=== PATIENT | female | born 1950 | race Caucasian/White ===

== ENCOUNTER 2017-07-28 20:58 | Emergency (ER) | payer SELFPAY ==
[2017-07-28] MEDS ORDERED: Ketorolac Tromethamine 60 MG/2 ML VIAL ONE (21:17)
[2017-07-28] MEDS ORDERED: Haloperidol Lactate 5 MG/ML VIAL ONE (21:42)
--- NOTE | 2017-07-28 23:02 | RAD ---
SACRUM AND COCCYX 07/28/17 The sacrum appears intact, though subtle injuries would be missed. The SI joints are symmetrical. Th e coccyx seems normally placed. The lateral views suggest spondylolisthesis of L5 on S1. IMPRESSION: No acute sacral or coccygeal findings. Sensitivity of the study would be low. If pain persisted, a C T could be helpful. POS: HOME
== END 2017-07-28 21:55 | disposition home or self-care (01) ==
LOC: BURERS 20:58
DX: M25.522 Pain in left elbow (principal); M54.5 Low back pain; J45.909 Unspecified asthma, uncomplicated; F41.9 Anxiety disorder, unspecified; F31.9 Bipolar disorder, unspecified; Z79.899 Other long term (current) drug therapy; W01.0XXA Fall on same level from slipping, tripping and stumbling without subsequent striking against object, initial encounter
CPT/HCPCS: 72220; 96372; J1630; J1885

== ENCOUNTER 2022-02-02 11:53 | Emergency (ER) | payer MEDICARE, OTHER ==
[2022-02-02] MEDS ORDERED: HYDROcodone/Acetaminophen 5/325 mg Tablet ONE (12:15)
[2022-02-02 12:33] LABS: #Basophils 0.2 thou/uL (0.0-0.2); #Eosinphils 0.6 thou/uL (0.0-0.7); #Lymphocytes 2.5 thou/uL (1.20-3.40); #Monocytes 0.8 thou/uL (0.11-0.59); #Neutrophils 6.1 thou/uL (1.40-6.50); %Basophils 1.6 % (0.0-1.0); %Eosinophils 6.2 % (0.0-10.0); %Lymphocytes 24.3 % (21.0-51.0); %Monocytes 7.7 % (0.0-10.0); %Neutrophils 60.2 % (42.0-75.0); Hemoglobin 13.4 g/dL (12.0-16.0); Mean Corpuscular HGB CONC 32.4 g/dL (32.0-36.0); Mean Corpuscular Hemoglobin 33.8 pg (27.0-31.0); Mean Platelet Volume 5.6 fL (7.4-10.4); Platelet Count 365 thou/uL (130-400); RBC Distribution Width 13.3 % (11.5-14.5); Red Blood Cell (RBC) Count 3.96 mill/uL (4.20-5.40); White Blood Cell (WBC) Count 10.1 thou/uL (4.8-10.8)
[2022-02-02] MEDS ORDERED: Lidocaine 1% w/Epinephrine 1:100K 20 ML VIAL ONE (12:40)
[2022-02-02 12:47] LABS: ALT (SGPT) 28 U/L (8-55); AST (SGOT) 32 U/L (5-34); Alkaline Phosphatase 88 U/L (40-110); Anion Gap 12 mmol/L (10-20); BUN (Urea Nitrogen) 17 mg/dL (9.8-20.1); Bilirubin, Total 0.5 mg/dL (0.2-1.2); Calc. Creatinine Clearance 0 mL/min (70-130); Calcium 9.6 mg/dL (7.8-10.44); Carbon Dioxide 31 mmol/L (23-31); Chloride 102 mmol/L (98-107); Globulin 3.4 g/dL (2.4-3.5); Glucose 93 mg/dL (80-115); Potassium 3.8 mmol/L (3.5-5.1); Protein, Total 7.4 g/dL (5.8-8.1); Sodium 141 mmol/L (136-145)
[2022-02-02 16:08] LABS: RBC Count-Automated (BF) 1442 /cu.mm; WBC/Nucleated-Auto (BF) 166 /cu.mm
[2022-02-02 16:40] LABS: BF Color Yellow; Body Fluid Source Synovial Fluid; Clarity Hazy (Clear); Tube # EDTA
[2022-02-02 16:42] LABS: BF Segmented Neutrophils 7 %; Cell Count Non Hematic 64 %; Lymphocytes 29 %
[2022-02-02] MEDS ORDERED: predniSONE 20 MG TAB ONE (17:12)
== END 2022-02-02 17:16 | disposition home or self-care (01) ==
LOC: BURERS 11:53
DX: M17.11 Unilateral primary osteoarthritis, right knee (principal); J45.909 Unspecified asthma, uncomplicated; Z87.891 Personal history of nicotine dependence; Z79.899 Other long term (current) drug therapy
CPT/HCPCS: 20610; 36415; 80053; 85025; 85060; 86140; 87070; 87205; 89051; 89060; J7512

== ENCOUNTER 2023-01-19 19:50 | Emergency (ER) | payer MEDICARE ==
[2023-01-19] MEDS ORDERED: Boostrix 0.5 ML (Tdap) VIAL (>/=7 yrs of age) ONE (20:30)
[2023-01-19] MEDS ORDERED: Amoxicillin/Potassium Clav 875 MG TAB ONE (20:30)
== END 2023-01-19 20:31 | disposition home or self-care (01) ==
LOC: BURERS 19:50
DX: S61.451A Open bite of right hand, initial encounter (principal); Z23 Encounter for immunization; Z87.891 Personal history of nicotine dependence; W55.01XA Bitten by cat, initial encounter
CPT/HCPCS: 90471; 90715

== ENCOUNTER 2023-02-07 14:56 | Outpatient (CLI) | payer MEDICARE, MEDICAID ==
[2023-02-07 15:21] LABS: #Basophils 0.2 thou/uL (0.0-0.2); #Eosinphils 0.4 thou/uL (0.0-0.7); #Lymphocytes 2.1 thou/uL (1.20-3.40); #Monocytes 0.5 thou/uL (0.11-0.59); #Neutrophils 5.7 thou/uL (1.40-6.50); %Basophils 1.9 % (0.0-1.0); %Eosinophils 4.9 % (0.0-10.0); %Lymphocytes 23.6 % (21.0-51.0); %Monocytes 5.9 % (0.0-10.0); %Neutrophils 63.7 % (42.0-75.0); Hemoglobin 15.2 g/dL (12.0-16.0); Mean Corpuscular HGB CONC 31.9 g/dL (32.0-36.0); Mean Corpuscular Hemoglobin 32.5 pg (27.0-31.0); Mean Platelet Volume 7.2 fL (7.4-10.4); Platelet Count 314 10x3/uL (130-400); RBC Distribution Width 12.1 % (11.5-14.5); Red Blood Cell (RBC) Count 4.67 mill/uL (4.20-5.40); White Blood Cell (WBC) Count 8.9 10x3/uL (4.8-10.8)
[2023-02-07 15:27] LABS: INR-International Normal Ratio 0.9; Prothrombin Time 12.7 sec (12.0-14.7)
[2023-02-07 15:33] LABS: ALT (SGPT) 20 U/L (8-55); AST (SGOT) 28 U/L (5-34); Albumin 4.6 g/dL (3.4-4.8); Alkaline Phosphatase 92 U/L (40-110); Anion Gap 10 mmol/L (10-20); BUN (Urea Nitrogen) 17 mg/dL (9.8-20.1); Bilirubin, Total Less than 0.2 mg/dL (0.2-1.2); Calc. Creatinine Clearance 0 mL/min (70-130); Calcium 10.2 mg/dL (7.8-10.44); Carbon Dioxide 29 mmol/L (23-31); Chloride 105 mmol/L (98-107); Estimated GFR 78; Globulin 3.7 g/dL (2.4-3.5); Glucose 95 mg/dL (80-115); Potassium 3.9 mmol/L (3.5-5.1); Protein, Total 8.3 g/dL (5.8-8.1); Sodium 140 mmol/L (136-145)
[2023-02-07 16:02] LABS: Thyroid Stimulating Hormone 0.7818 uIU/mL (0.35-4.94)
[2023-02-07 22:48] LABS: Hemoglobin A1c 4.9 % (4.0-6.0)
[2023-02-07 23:10] LABS: Hep C IgG Ab Non-Reactive (NonReactive); Hep C Index 0.12 S/CO (0-0.79)
== END 2023-02-07 14:57 | disposition home or self-care (01) ==
LOC: BUREKG 14:56
PROVIDERS: ATTEND Family Medicine
DX: Z01.818 Encounter for other preprocedural examination (principal); Z11.59 Encounter for screening for other viral diseases; R06.02 Shortness of breath; Z79.899 Other long term (current) drug therapy
CPT/HCPCS: 36415; 71046; 80053; 83036; 84443; 85025; 85610; 86803; 93005; 93010

== ENCOUNTER 2023-10-11 09:22 | Emergency (ER) | payer MEDICARE, MEDICAID ==
[2023-10-11] MEDS ORDERED: Ketorolac Tromethamine 30 MG/ML VIAL ONE (09:44)
== END 2023-10-11 09:51 | disposition home or self-care (01) ==
LOC: BURERS 09:22
DX: M54.6 Pain in thoracic spine (principal); J44.9 Chronic obstructive pulmonary disease, unspecified
CPT/HCPCS: 96372; 99283; J1885